=== PATIENT | female | born 2000 | race Two or more races ===

== ENCOUNTER 2025-03-07 08:45 | Emergency (ER) | payer OTHER ==
[~2025-03-07] VITALS: Ht 167.6 cm; Wt 63.0 kg
[2025-03-07] MEDS ORDERED: PR NATAL 400 C1 EACH PO (09:00)
[2025-03-07 10:01] LABS: BASO % 0.5 % (0.1-1.2); EOS # 0.04 (0.04-0.54); EOS % 0.7 % (0.7-7.0); LYMPH # 1.57 (1.18-3.74); LYMPH % 27.9 % (19.3-53.1); MEAN PLATELET VOLUME 10.70 fl (9.4-12.4); MONO # 0.36 (0.24-0.82); MONO % 6.4 % (4.7-12.5); NEUT # 3.60 (1.56-6.13); NEUT % 64.1 % (34.0-71.1); RED CELL DISTRIBUTION WIDTH 12.4 % (11.6-14.4)
[2025-03-07 10:48] LABS: BUN CREA RATIO 13.0 (7.0-25.0); CREATININE SERUM 0.55 mg/dL (0.55-1.02); GFR 134.67; GLUCOSE FASTING 99.0 mg/dL (65-100); OSMOLALITY SERUM 274.0 MOSM/KG (275-295)
[2025-03-07 10:51] LABS: HCG QUANTITATIVE 40555.0 mUI/mL (1-3)
== END 2025-03-07 15:38 | disposition home or self-care (01) ==
LOC: ER 08:45
PROVIDERS: Emergency Medicine
DX: O20.8 Other hemorrhage in early pregnancy (principal); Z3A.01 Less than 8 weeks gestation of pregnancy

== ENCOUNTER → 2025-03-26 | Emergency (ER) | payer OTHER ==
[~2025-03-26] MED LIST: PR NATAL 400 C1 EACH PO
== END | disposition left against medical advice (07) ==
LOC: ER 22:54
DX: Z53.21 Procedure and treatment not carried out due to patient leaving prior to being seen by health care provider (principal)

== ENCOUNTER 2025-04-12 09:58 | Outpatient (CLI) | payer OTHER | END 2025-04-12 10:12 | disposition home or self-care (01) | LOC: PRENATAL 09:58 | PROVIDERS: ATTEND Obstetrics & Gynecology Maternal & Fetal Medicine | DX: O36.80X0 Pregnancy with inconclusive fetal viability, not applicable or unspecified (principal); Z36.82 Encounter for antenatal screening for nuchal translucency; Z14.8 Genetic carrier of other disease; Z3A.12 12 weeks gestation of pregnancy ==

== ENCOUNTER 2025-06-02 07:57 | Outpatient (CLI) | payer OTHER | END 2025-06-02 07:58 | disposition home or self-care (01) | LOC: PRENATAL 07:57 | PROVIDERS: ATTEND Obstetrics & Gynecology Maternal & Fetal Medicine | DX: O44.02 Complete placenta previa NOS or without hemorrhage, second trimester (principal); Z3A.20 20 weeks gestation of pregnancy ==

== ENCOUNTER 2025-06-27 21:49 | Outpatient (CLI) | payer OTHER ==
[~2025-06-27] VITALS: Ht 167.6 cm; Wt 74.4 kg
[2025-06-27 20:45] VITALS: BP 104/67
[2025-06-27] MEDS ORDERED: RINGERS SOLUTION,LACTATED 1,000 ML IV SCH (22:45)
[2025-06-27] MEDS ORDERED: FAMOtidine 10 MG/ML (4ML VIAL) IV ONE (22:45)
[2025-06-27 23:16] LABS: BASO % 0.3 % (0.1-1.2); EOS # 0.03 (0.04-0.54); EOS % 0.5 % (0.7-7.0); LYMPH # 1.85 (1.18-3.74); LYMPH % 30.5 % (19.3-53.1); MEAN PLATELET VOLUME 11.80 fl (9.4-12.4); MONO # 0.56 (0.24-0.82); MONO % 9.2 % (4.7-12.5); NEUT # 3.60 (1.56-6.13); NEUT % 59.3 % (34.0-71.1); RED CELL DISTRIBUTION WIDTH 13.2 % (11.6-14.4)
[2025-06-27 23:18] LABS: URINE APPEARANCE Clear; URINE BILIRRUBIN Negative (NEGATIVE); URINE BLOOD Negative; URINE COLOR Yellow; URINE GLUCOSE Negative (NEGATIVE); URINE KETONE Negative (NEGATIVE); URINE LEUKOCYTE Moderate; URINE NITRATE Negative; URINE PROTEIN Negative (NEGATIVE); URINE UROBILINOGEN 0.2 E.U./dl
[2025-06-27 23:21] LABS: URINE BACTERIA 1588.8 uL (0.0-1933); URINE EPITHELIAL CELLS 99.0 uL (0.0-38.8); URINE WBC 114.9 uL (0.0-23.2)
[2025-06-27 23:36] LABS: URINE CAST 0.00 uL (0.0-1.40); URINE RBC 1.9 uL (0.0-20.8)
[2025-06-27 23:37] LABS: ALT/SGPT 32.0 U/L (12-78); AST/SGOT 27.0 U/L (15-37); BILIRUBIN TOTAL 0.23 mg/dL (0.3-1.2); BUN CREA RATIO 23.0 (7.0-25.0); CREATININE SERUM 0.39 mg/dL (0.55-1.02); GFR 200.24; GLOBULINA 3.3 G/DL (2.4-3.5); GLUCOSE FASTING 74.0 mg/dL (65-100); OSMOLALITY SERUM 280.0 MOSM/KG (275-295)
[2025-06-27 23:55] VITALS: BP 102/66
[2025-06-28] MEDS ORDERED: FAMOTIDINE/PF 20 MG/2 ML VIAL IV PRN (02:15)
[2025-06-28 04:11] VITALS: BP 96/67
[2025-06-28 07:22] VITALS: BP 95/59; O2SAT 98
[2025-06-28 10:13] VITALS: BP 95/59
== END 2025-06-28 10:13 | disposition home or self-care (01) ==
LOC: OBS/DEL 21:49
PROVIDERS: ATTEND Obstetrics & Gynecology
DX: O99.612 Diseases of the digestive system complicating pregnancy, second trimester (principal); K29.60 Other gastritis without bleeding; Z3A.23 23 weeks gestation of pregnancy